=== PATIENT | female | born 1955 | race Asian ===

== ENCOUNTER 2018-04-18 12:46 | Emergency (ER) | payer OTHER ==
[2018-04-18 13:54] VITALS: TEMP 97.6; BMI 23.8
[2018-04-18] MEDS ORDERED: SODIUM CHLORIDE 1,000 ML IV STA (14:58)
[2018-04-18] MEDS ORDERED: ONDANSETRON 4 MG/2 ML VIAL IVPUSH ONE (15:20)
--- NOTE | 2018-04-18 15:21 | PDOC ---
History of Present Illness <Gurpreet Fritz - Last Filed: 04/18/18 15:54> - History of Present Illness Initial Comments: 04/18/18 15:17 "The patient is a 62 year old female with a significant PMH of diabetes (on Metformin) and HTN (on Metoprolol) who presents to the emergency department with multiple complaints including nausea, vomiting, and diarrhea beginning this morning. The patient states she had several episodes of diarrhea this morning. Then, while at work she began to feel nauseous with associated lightheadedness at work, after which she vomiting about 2 times. She reports lightheadedness and nausea at presentation. The patient denies fever but endorses chills. The patient denies chest pain, shortness of breath, headache and dizziness. Denies dysuria, frequency, urgency and hematuria. Allergies: Acetaminophen, Ciprofloxacin, Furosemide, Iodine, Shellfish. Past surgical history: None reported. Social history: No reported cigarette, alcohol, or drug use. PCP: Dr. Wang " <Mark Santamaria - Last Filed: 04/18/18 17:32> - General Chief Complaint: Nausea/Vomiting Stated Complaint: NAUSEA/VOMITING, BLOOD PRESSURE PROBLEM Time Seen by Provider: 04/18/18 14:43 Past History <Gurpreet Fritz - Last Filed: 04/18/18 15:54> - Past Medical History Anemia: No Asthma: No Cancer: No Cardiac Disorders: No CVA: No COPD: No CHF: No Dementia: No Diabetes: No GI Disorders: No Disorders: No HTN: Yes Hypercholesterolemia: No Liver Disease: No Seizures: No Thyroid Disease: No - Surgical History Abdominal Surgery: No Appendectomy: No Cardiac Surgery: No Cholecystectomy: No Lung Surgery: No Neurologic Surgery: No Orthopedic Surgery: No - Suicide/Smoking/Psychosocial Hx Smoking Status: No Smoking History: Never smoked Have you smoked in the past 12 months: No Number of Cigarettes Smoked Daily: 0 Information on smoking cessation initiated: No Hx Alcohol Use: No Drug/Substance Use Hx: No Substance Use Type: None Hx Substance Use Treatment: No <Mark Santamaria - Last Filed: 04/18/18 17:32> - Past Medical History Allergies/Adverse Reactions: Allergies Allergy/AdvReac Type Severity Reaction Status Date / Time acetaminophen [From Tylenol] Allergy Rash Verified 04/18/18 13:18 ciprofloxacin [From Cipro] Allergy Rash Verified 04/18/18 13:18 furosemide [From Lasix] Allergy Rash Verified 04/18/18 13:18 iodine Allergy Swelling Verified 04/18/18 13:18 shellfish derived Allergy Swelling Verified 04/18/18 13:18 Home Medications: Ambulatory Orders Metoprolol Succinate [Toprol XL -] 25 mg PO DAILY 04/07/12 Diazepam [Valium -] 5 mg PO BID PRN #10 tablet 03/08/15 Review of Systems - Review of Systems Comments:: 04/18/18 15:20 "GENERAL/CONSTITUTIONAL: No fever or chills. No weakness. HEAD, EYES, EARS, NOSE AND THROAT: No change in vision. No ear pain or discharge. No sore throat. CARDIOVASCULAR: No chest pain or shortness of breath. RESPIRATORY: No cough, wheezing, or hemoptysis. GASTROINTESTINAL: (+) Nausea (+) Vomiting (+) Diarrhea. No constipation. GENITOURINARY: No dysuria, frequency, or change in urination. MUSCULOSKELETAL: No joint or muscle swelling or pain. No neck or back pain. SKIN: No rash NEUROLOGIC: (+) Lightheadedness. No headache, vertigo, loss of consciousness, or change in strength/sensation. ENDOCRINE: No increased thirst. No abnormal weight change. HEMATOLOGIC/LYMPHATIC: No anemia, easy bleeding, or history of blood clots. ALLERGIC/IMMUNOLOGIC: No hives or skin allergy. " <Mark Santamaria - Last Filed: 04/18/18 17:32> *Physical Exam - Vital Signs Last Vital Signs Temp Pulse Resp BP Pulse Ox 97.6 F 71 18 144/67 100 04/18/18 12:55 04/18/18 12:55 04/18/18 12:55 04/18/18 12:55 04/18/18 12:55 <Gurpreet Fritz - Last Filed: 04/18/18 15:54> - Vital Signs Last Vital Signs Temp Pulse Resp BP Pulse Ox 97.6 F 71 18 144/67 100 04/18/18 12:55 04/18/18 12:55 04/18/18 12:55 04/18/18 12:55 04/18/18 12:55 - Physical Exam Comments: 04/18/18 15:20 "GENERAL: Awake, alert, and fully oriented, in no acute distress. HEAD: No signs of trauma EYES: PERRLA, EOMI, sclera anicteric, conjunctiva clear ENT: Auricles normal inspection, hearing grossly normal, nares patent, oropharynx clear without exudates. Moist mucosa NECK: Nontender, no stepoffs, Normal ROM, supple, no lymphadenopathy, JVD, or masses LUNGS: Breath sounds equal, clear to auscultation bilaterally. No wheezes, and no crackles HEART: Regular rate and rhythm, normal S1 and S2, no murmurs, rubs or gallops ABDOMEN: Soft, nontender, normoactive bowel sounds. No guarding, no rebound. No masses EXTREMITIES: Normal range of motion, no edema. No clubbing or cyanosis. No cords , erythema, or tenderness NEUROLOGICAL: Cranial nerves II through XII intact. 5/5 strength and sensation in all extremities, Normal speech, normal gait, normal cerebellar function SKIN: Warm, Dry, normal turgor, no rashes or lesions noted. " <Mark Santamaria - Last Filed: 04/18/18 17:32> Heart Score/ECG Review - ECG Impressions Comment:: 04/18/18 15:33 NSR, no JENN/STDs, no TWIs, axis wnl, intervals nwl, rate 62 <Mark Santamaria - Last Filed: 04/18/18 17:32> ED Treatment Course - LABORATORY CBC & Chemistry Diagram: 04/18/18 15:22 - Medications Given in the ED: ED Medications Discontinued Medications Generic Name Dose Route Start Last Admin Trade Name Freq PRN Reason Stop Dose Admin Ondansetron HCl 4 mg 04/18/18 15:20 04/18/18 15:21 Zofran Injection IVPUSH 04/18/18 15:21 4 mg ONCE ONE Administration <Gurpreet Fritz - Last Filed: 04/18/18 15:54> - LABORATORY CBC & Chemistry Diagram: 04/18/18 15:22 04/18/18 15:26 - RADIOLOGY Radiology Studies Ordered: Category Date Time Status CHEST X-RAY PORTABLE* [RAD] Stat Radiology 04/18/18 14:58 Ordered <HinaMark - Last Filed: 04/18/18 17:32> Medical Decision Making - Medical Decision Making 04/18/18 15:20 62 F with N+V+D. Likely viral gastroenteritis. Pt with stable vitals, benign exam. Will r/o atypical presentation of ACS. - Labs, trop - EKG - IVF, zofran 04/18/18 17:30 Labs wnl EKG unchanged since previous CXR clear on my read Pt reassessed - now feels much better after IVF and zofran. Pt is well appearing, with normal vitals. Clinically stable for DC at this time. I discussed the physical exam findings, ancillary test results and final diagnoses with the patient. I answered all of the patient's questions. The patient was satisfied with the care received and felt comfortable with the discharge plan and treatment plan. The patient agrees to follow up with the primary care physician within 24-72 hours. <Mark Santamaria - Last Filed: 04/18/18 17:32> *DC/Admit/Observation/Transfer - Attestations Scribe Attestion: 04/18/18 15:55 Documentation prepared by Gurpreet Fritz, acting as medical secretary for Mark Santamaria MD. <Gurpreet Fritz - Last Filed: 04/18/18 15:54> - Attestations Physician Attestion: 04/18/18 17:32 I, Dr. Mark Santamaria MD, attest that this document has been prepared under my direction and personally reviewed by me in its entirety. I further attest, that it accurately reflects all work, treatment, procedures and medical decision -making performed by me. <Mark Santamaria - Last Filed: 04/18/18 17:32> Diagnosis at time of Disposition: Gastroenteritis - Discharge Dispostion Disposition: HOME - Referrals Referrals: Ashish Wang MD [Primary Care Provider] - - Patient Instructions Printed Discharge Instructions: DI for Viral Gastroenteritis -- Adult Additional Instructions: Drink plenty of fluids. Follow up with Dr. yLnn this week for a re-evaluation. If you experience worsening nausea, vomiting, abdominal pain, chest pain, or any other concerning symptoms, return to the ER immediately. - Post Discharge Activity
[2018-04-18] MEDS ORDERED: ONDANSETRON 4 MG/2 ML VIAL ONE (15:23)
[2018-04-18 15:50] LABS: BASO % 0.6 % (0-2.0); EOS % 2.2 % (0-4.5); HEMATOCRIT 39.5 % (32.4-45.2); HEMOGLOBIN 13.1 GM/dL (10.7-15.3); LYMPH % 24.7 % (8-40); MCH 29.7 pg (25.7-33.7); MCHC 33.2 g/dl (32.0-36.0); MEAN CELL VOLUME 89.6 fl (80-96); MEAN PLT VOLUME 8.4 fl (7.5-11.1); NEUT % 64.5 % (42.8-82.8); PLATELET COUNT 321 K/MM3 (134-434); RBC 4.41 M/mm3 (3.60-5.2); RDW 13.3 % (11.6-15.6); WHITE BLOOD COUNT 5.6 K/mm3 (4.0-10.0)
--- NOTE | 2018-04-18 16:21 | EKG ---
Test Reason : Blood Pressure : / mmHG Vent. Rate : 062 BPM Atrial Rate : 062 BPM P-R Int : 150 ms QRS Dur : 080 ms QT Int : 422 ms P-R-T Axes : 032 034 037 degrees QTc Int : 428 ms NORMAL SINUS RHYTHM NORMAL ECG WHEN COMPARED WITH ECG OF 08-MAR-2015 15:01, T WAVE INVERSION NOW EVIDENT IN ANTERIOR LEADS Confirmed by MARNI MOHAN MD ([id number]) on 04/18/2018 4:20:25 PM Referred By: Confirmed By:MARNI MOHAN MD
[2018-04-18 17:19] LABS: ALBUMIN 3.6 g/dl (3.4-5.0); ANION GAP 13 (8-16); BILIRUBIN,TOTAL 0.3 mg/dL (0.2-1.0); BLOOD UREA NITROGEN 15 mg/dL (7-18); CALCIUM 9.1 mg/dL (8.5-10.1); CHLORIDE 105 mmol/L (98-107); CO2 22 mmol/L (21-32); CREATININE 0.6 mg/dL (0.55-1.02); GLUCOSE,RANDOM 149 mg/dL (74-106); LIPASE 146 U/L (73-393); SGPT/ALT 39 U/L (12-78); SODIUM 140 mmol/L (136-145); TOT PROT 7.3 g/dl (6.4-8.2)
[2018-04-18 17:20] LABS: ALK PHOS 62 U/L (45-117)
[2018-04-18 17:22] LABS: SGOT/AST 26 U/L (15-37)
[2018-04-18 17:40] VITALS: BP 119/78; PULSE 63
== END 2018-04-18 17:42 | disposition home or self-care (01) ==
LOC: JER 12:46
PROC: 3E0337Z Introduction of Electrolytic and Water Balance Substance into Peripheral Vein, Percutaneous Approach (ICD-10-PCS; principal; 2018-04-18)
DX: K52.9 Noninfective gastroenteritis and colitis, unspecified (principal); E11.9 Type 2 diabetes mellitus without complications; I10 Essential (primary) hypertension; Z79.84 Long term (current) use of oral hypoglycemic drugs
CPT/HCPCS: 36415; 71045-TC-FY; 80053; 82550; 83690; 84484; 85025; 93005; 93010; 99283-25; J7030

== ENCOUNTER 2019-06-30 15:40 | Emergency (ER) | payer OTHER ==
[2019-06-30 15:46] VITALS: BP 137/80; PULSE 68; TEMP 98.3; BMI 23.8
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
== END 2019-06-30 16:56 | disposition home or self-care (01) ==
LOC: JERFT 15:40
DX: S13.4XXA Sprain of ligaments of cervical spine, initial encounter (principal); V43.52XA Car driver injured in collision with other type car in traffic accident, initial encounter; Y92.488 Other paved roadways as the place of occurrence of the external cause; Y93.89 Activity, other specified; Y99.8 Other external cause status
CPT/HCPCS: 99281-25

== ENCOUNTER 2021-06-25 09:26 | Emergency (ER) | payer BC, OTHER ==
[2021-06-25 09:38] VITALS: TEMP 98.1; BMI 24.7
[2021-06-25] MEDS ORDERED: ASPIRIN 81 MG CHEWABLE TABLETS PO ONE (10:28)
[2021-06-25] MEDS ORDERED: ASPIRIN 81 MG CHEWABLE TABLETS ONE (10:38)
[2021-06-25 11:00] LABS: BASO % 0.9 % (0-2.0); EOS % 1.8 % (0-4.5); HEMATOCRIT 40.5 % (32.4-45.2); HEMOGLOBIN 13.8 GM/dL (10.7-15.3); LYMPH % 42.1 % (8-40); MCH 30.5 pg (25.7-33.7); MEAN CELL VOLUME 89.6 fl (80-96); MEAN PLT VOLUME 8.9 fl (7.5-11.1); MONO % 10.5 % (3.8-10.2); NEUT % 44.7 % (42.8-82.8); PLATELET COUNT 340 10^3/uL (134-434); RBC 4.52 M/mm3 (3.60-5.2); RDW 12.9 % (11.6-15.6); WHITE BLOOD COUNT 5.3 K/mm3 (4.0-10.0)
[2021-06-25 11:09] LABS: INR 0.91 (0.83-1.09)
[2021-06-25 11:10] LABS: CHLORIDE 108 mmol/L (98-107); SODIUM 140 mmol/L (136-145)
[2021-06-25 11:12] LABS: ACTIVATED PTT 33.1 SECONDS (25.2-36.5); CALCIUM 9.4 mg/dL (8.5-10.1)
[2021-06-25 11:13] LABS: ALBUMIN 3.9 g/dl (3.4-5.0); ANION GAP 8 MMOL/L (8-16); BLOOD UREA NITROGEN 12.6 mg/dL (7-18); CO2 25 mmol/L (21-32); GLUCOSE,RANDOM 110 mg/dL (74-106)
[2021-06-25 11:16] LABS: CREATININE 0.6 mg/dL (0.55-1.3); SGOT/AST 24 U/L (15-37); SGPT/ALT 39 U/L (13-61)
[2021-06-25 11:18] LABS: BILIRUBIN,TOTAL 0.4 mg/dL (0.2-1); TOT PROT 7.7 g/dl (6.4-8.2)
[2021-06-25 11:19] LABS: ALK PHOS 68 U/L (45-117)
[2021-06-25 12:46] VITALS: BP 139/73; PULSE 72
== END 2021-06-25 14:42 | disposition home or self-care (01) ==
LOC: JER 09:26
DX: R07.89 Other chest pain (principal)
CPT/HCPCS: 36415; 71046-TC-FY; 80053; 82550; 84484; 85025; 85379; 85610; 85730; 93005; 93010; 99285-25

== ENCOUNTER 2024-04-09 01:59 | Emergency (ER) | payer BC, OTHER ==
[2024-04-09 02:04] VITALS: BP 142/71; PULSE 74; RESP 18; TEMP 98.3; BMI 23.8
[2024-04-09] MEDS ORDERED: FAMOTIDINE 20 MG TABLET ONE (02:34)
[2024-04-09] MEDS ORDERED: predniSONE 20 MG TABLET (UD) ONE (02:35)
[2024-04-09] MEDS: DEXAMETHASONE SOD PHOSPHATE 10 MG/1 ML VIAL IM ONE (02:38)
[2024-04-09] MEDS: predniSONE 20 MG TABLET (UD) PO ONE (02:39)
[2024-04-09] MEDS: FAMOTIDINE 20 MG TABLET PO ONE (02:39)
== END 2024-04-09 03:45 | disposition home or self-care (01) ==
LOC: JER 01:59
DX: R22.0 Localized swelling, mass and lump, head (principal); L29.8 Other pruritus; T45.0X5A Adverse effect of antiallergic and antiemetic drugs, initial encounter
CPT/HCPCS: 99283-25

== ENCOUNTER 2024-04-10 17:04 | Emergency (ER) | payer BC ==
[2024-04-10 17:20] VITALS: BP 116/67; PULSE 81; RESP 18; TEMP 98.2; BMI 23.8
[2024-04-10] MEDS ORDERED: FAMOTIDINE 20 MG/50 ML IVPB 20 MG/50 ML MG IVPB ONE (18:31)
[2024-04-10] MEDS: SODIUM CHLORIDE 1,000 ML IV STA (18:57)
[2024-04-10] MEDS: FAMOTIDINE 20 MG/50 ML IVPB 20 MG/50 ML MG IVPB ONE (18:57)
[2024-04-10 19:19] LABS: BASO % 0.3 % (0-2.0); HEMATOCRIT 39.9 % (32.4-45.2); HEMOGLOBIN 13.3 GM/dL (10.7-15.3); MCH 30.2 pg (25.7-33.7); MCHC 33.3 g/dl (32.0-36.0); MEAN CELL VOLUME 90.5 fl (80-96); MEAN PLT VOLUME 8.6 fl (7.5-11.1); MONO % 3.6 % (3.8-10.2); NEUT % 83.1 % (42.8-82.8); PLATELET COUNT 312 10^3/uL (134-434); RDW 12.8 % (11.6-15.6); WHITE BLOOD COUNT 6.8 K/mm3 (4.0-10.0)
[2024-04-10 19:33] LABS: ALBUMIN 4.3 g/dl (3.4-5.0); BLOOD UREA NITROGEN 11.8 mg/dL (7-18); CALCIUM 10.1 mg/dL (8.5-10.1)
[2024-04-10 19:36] LABS: CREATININE 0.8 mg/dL (0.55-1.3)
[2024-04-10 19:38] LABS: BILIRUBIN,TOTAL 0.4 mg/dL (0.2-1); TOT PROT 7.9 g/dl (6.4-8.2)
[2024-04-10] MEDS ORDERED: KETOROLAC TROMETHAMINE 30 MG/1 ML VIAL ONE (19:59)
[2024-04-10] MEDS: KETOROLAC TROMETHAMINE 30 MG/1 ML VIAL IVPUSH ONE (20:24)
== END 2024-04-10 20:54 | disposition home or self-care (01) ==
LOC: JER 17:04
PROC: 3E033GC Introduction of Other Therapeutic Substance into Peripheral Vein, Percutaneous Approach (ICD-10-PCS; principal; 2024-04-10)
PROC: 3E033GC Introduction of Other Therapeutic Substance into Peripheral Vein, Percutaneous Approach (ICD-10-PCS; 2024-04-10)
PROC: 3E0333Z Introduction of Anti-inflammatory into Peripheral Vein, Percutaneous Approach (ICD-10-PCS; 2024-04-10)
DX: R22.0 Localized swelling, mass and lump, head (principal); L29.9 Pruritus, unspecified; T45.0X5A Adverse effect of antiallergic and antiemetic drugs, initial encounter
CPT/HCPCS: 36415; 80053; 85025; 99284-25